=== PATIENT | female | born 1960 | race Caucasian/White ===

== ENCOUNTER → 2016-08-26 | Outpatient (CLI) | payer BC ==
--- NOTE | 2016-08-26 16:39 | MAMMOGRAPHY REPORT ---
BILATERAL DIGITAL SCREENING MAMMOGRAM TOMOSYNTHESIS WITH CAD: 08/26/2016 CLINICAL HISTORY: Routine screening. Patient has no complaints. TECHNIQUE: Breast tomosynthesis in addition to standard 2D mammography was performed. Current study was also evaluated with a Computer Aided Detection (CAD) system. COMPARISON: Comparison is made to exams dated: 08/21/2015 mammogram, 08/15/2014 mammogram, 08/03/2014 saundra mogram, 07/21/2012 mammogram, 05/05/2011 mammogram, and 07/28/2013 mammogram - [facility]. BREAST COMPOSITION: The tissue of both breasts is heterogeneously dense, which may obscure small mas ses. FINDINGS: No suspicious masses, calcifications, or areas of architectural distortion are noted in ei ther breast. There has been no significant interval change compared to prior exams. IMPRESSION: ACR BI-RADS CATEGORY 1: NEGATIVE There is no mammographic evidence of malignancy. A 1 year screening mammogram is recommended. The pa tient will receive written notification of the results. Approximately 10% of breast cancers are not detected with mammography. A negative mammographic report should not delay biopsy if a clinically suggestive mass is present. Amy Nunez M.D. ah/:08/26/2016 15:50:00 Aircraft Technician: Rachel SPAULDING(R)(M), [facility] letter sent: Normal 1/2 BI-RADS Code: ACR BI-RADS Category 1: Negative
== END | disposition home or self-care (01) ==
LOC: C.MAMM 10:18
PROVIDERS: ATTEND Obstetrics & Gynecology
DX: Z12.31 Encounter for screening mammogram for malignant neoplasm of breast (principal)

== ENCOUNTER → 2016-09-16 | Outpatient (CLI) | payer BC | END | disposition home or self-care (01) | LOC: C.PAPS 14:11 | PROVIDERS: ATTEND Obstetrics & Gynecology | DX: Z01.419 Encounter for gynecological examination (general) (routine) without abnormal findings (principal) ==

== ENCOUNTER → 2017-10-26 | Outpatient (CLI) | payer BC ==
--- NOTE | 2017-10-27 13:52 | MAMMOGRAPHY REPORT ---
BILATERAL DIGITAL SCREENING MAMMOGRAM TOMOSYNTHESIS WITH CAD: 10/26/2017 CLINICAL HISTORY: Routine screening. TECHNIQUE: The study was acquired using full field digital technology and interpreted from soft copy. Breast tomosynthesis in addition to standard 2D mammography was performed. Current study was also ev aluated with a Computer Aided Detection (CAD) system. COMPARISON: Comparison is made to exams dated: 08/26/2016 mammogram, 08/21/2015 mammogram, 08/03/2014 ma mmogram, 07/28/2013 mammogram, 07/21/2012 mammogram, and 05/05/2011 mammogram - [facility]. BREAST COMPOSITION: The tissue of both breasts is heterogeneously dense, which may obscure small mass es. FINDINGS: There is stable asymmetry in the superior left breast on the MLO view, and decreased size o f a round nodular asymmetry in the posterior right breast along the posterior nipple line on the CC v iew, confirming benignity. No suspicious mass, architectural distortion or cluster of microcalcificat ions is seen. IMPRESSION: ACR BI-RADS CATEGORY 1: NEGATIVE There is no mammographic evidence of malignancy. A 1 year screening mammogram is recommended.( [id number]) The patient will receive written notification of the results. Some breast cancers are not detected with mammography. A negative mammographic report should not emily y biopsy if a clinically suggestive mass is present. Christine Garrett M.D. ay/:10/26/2017 21:57:18 Sugar Controller: RT Alli(Mckenzie)([place]), [facility] letter sent: Normal 1/2 BI-RADS Code: ACR BI-RADS Category 1: Negative
== END | disposition home or self-care (01) ==
LOC: C.MAMM 12:01
PROVIDERS: ATTEND Obstetrics & Gynecology
DX: Z12.31 Encounter for screening mammogram for malignant neoplasm of breast (principal)